=== PATIENT | male | born 1990 | race Caucasian/White ===

== ENCOUNTER 2020-02-29 13:58 | Emergency (ER) | payer BC ==
[2020-02-29] MEDS ORDERED: Sodium Chloride 0.9% 10 ML Syringe FLUSH PRN (14:25)
[2020-02-29] MEDS ORDERED: Sodium Chloride 0.9% 1,000 ML IV SCH ×2 (14:30→16:15)
--- NOTE | 2020-02-29 14:42 | EDM.PDOC ---
ED HPI GENERAL MEDICAL PROBLEM - General Chief Complaint: General Stated Complaint: SWEATING/SOB/POSS HEAT EXHAUSTION Time Seen by Provider: 02/29/20 14:10 Source of Information: Reports: Patient History Limitations: Reports: No Limitations - History of Present Illness INITIAL COMMENTS - FREE TEXT/NARRATIVE: Patient is a 29-year-old male who presents to the emergency department plaints of 2 episodes of dizziness, sweating, shortness of breath, slurred speech, and confusion. The first episode occurred approximately 10 days ago. Patient works on an [employer]. States that that time the temperature was about 100 degrees outside. He was working up on the [employer] and became nauseous. He was also short of breath, sweating, hot, confused, and slurred his speech. He also has significant muscle cramping at this time. His coworkers took him home where he rested. He had resolution of symptoms overnight but returned back to work the next day. Yesterday he had a similar episode, however he was not nauseous. It was not nearly as warm up on the [employer] yesterday as it was 10 days ago. He states he was once again up in the [employer] became sweaty, short of breath, dizzy, confused, and had slurred speech. He also had some mild muscle cramps. He denies any chest pain, numbness or tingling of the extremities, vomiting, or diarrhea. He states that he feels he drinks enough fluid. He drinks Gatorade, water, and body armor's about 8-14 bottles per day. He states he has felt overall fatigued since the initial episode 10 days ago. Denies any recreational drug use. He has no chronic medical conditions and is never had any surgeries. - Related Data Allergies Allergy/AdvReac Type Severity Reaction Status Date / Time No Known Allergies Allergy Verified 02/29/20 14:12 Home Meds: Home Meds . [No Known Home Meds] 02/29/20 [History] Past Medical History - Past Health History Medical/Surgical History: Denies Medical/Surgical History - Infectious Disease History Infectious Disease History: Reports: None Social & Family History - Tobacco Use Smoking Status *Q: Current Every Day Smoker Years of Tobacco use: 10 Packs/Tins Daily: 1.5 - Caffeine Use Caffeine Use: Reports: Energy Drinks - Recreational Drug Use Recreational Drug Use: No ED ROS GENERAL - Review of Systems Review Of Systems: See Below Constitutional: Reports: Fatigue. Denies: Fever, Chills HEENT: Reports: No Symptoms Respiratory: Reports: Shortness of Breath. Denies: Wheezing, Pleuritic Chest Pain, Cough Cardiovascular: Reports: Lightheadedness. Denies: Chest Pain, Syncope Endocrine: Reports: No Symptoms GI/Abdominal: Reports: No Symptoms. Denies: Abdominal Pain, Nausea, Vomiting : Reports: No Symptoms Musculoskeletal: Reports: Other (Generalized muscle cramps) Skin: Reports: No Symptoms Neurological: Reports: Confusion, Change in Speech. Denies: Headache, Numbness, Tingling Psychiatric: Reports: No Symptoms Hematologic/Lymphatic: Reports: No Symptoms Immunologic: Reports: No Symptoms ED EXAM, GENERAL - Physical Exam Exam: See Below Exam Limited By: No Limitations General Appearance: Alert, WD/WN, No Apparent Distress, Other (Sleepy) Respiratory/Chest: No Respiratory Distress, Lungs Clear, Normal Breath Sounds, No Accessory Muscle Use, Chest Non-Tender Cardiovascular: Normal Peripheral Pulses, Regular Rate, Rhythm, No Edema, No Gallop, No JVD, No Murmur, No Rub Neurological: Alert, Oriented, CN II-XII Intact, Normal Cognition, Normal Gait, Normal Reflexes, No Motor/Sensory Deficits. No: Confused Psychiatric: Normal Affect, Normal Mood Skin Exam: Warm, Dry, Intact, Normal Color, No Rash EKG INTERPRETATION EKG Date: 02/29/20 Time: 15:52 Rhythm: NSR Rate (Beats/Min): 66 [place]: Normal P-Wave: Present QRS: Normal ST-T: Normal QT: Normal EKG Interpretation Comments: t-wave inversion in lead III EKG interpreted by Dr. Mike Partida MD. Course - Vital Signs Last Recorded V/S: Last Vital Signs Temp 96.5 F L 02/29/20 14:08 Pulse 75 02/29/20 14:08 Resp 16 02/29/20 14:08 BP 123/84 02/29/20 14:08 Pulse Ox 96 02/29/20 14:08 - Orders/Labs/Meds Orders: Active Orders 24 hr Category Date Time Status Cardiac Monitoring [RC] . DIRECTED Care 02/29/20 15:53 Active EKG Documentation Completion [RC] STAT Care 02/29/20 15:36 Active Peripheral IV Care [RC] . DIRECTED Care 02/29/20 14:26 Active AMPHET/METH EXT CONF (GCMS) Routine Lab 02/29/20 16:30 Received Peripheral IV Insertion Adult [OM.PC] Stat Oth 02/29/20 14:25 Ordered Labs: Laboratory Tests 02/29/20 02/29/20 02/29/20 Range/Units 14:55 14:55 14:55 WBC 6.86 (4.23-9.07) K/mm3 RBC 5.07 (4.63-6.08) M/mm3 Hgb 15.0 (13.7-17.5) gm/dl Hct 45.7 (40.1-51.0) % MCV 90.1 (79.0-92.2) fl MCH 29.6 (25.7-32.2) pg MCHC 32.8 (32.2-35.5) g/dl RDW Std Deviation 42.2 (35.1-43.9) fL Plt Count 265 (163-337) K/mm3 MPV 11.0 (9.4-12.3) fl Neut % (Auto) 71.5 H (34.0-67.9) % Lymph % (Auto) 15.9 L (21.8-53.1) % [place] % (Auto) 8.5 (5.3-12.2) % Eos % (Auto) 3.8 (0.8-7.0) Baso % (Auto) 0.3 (0.1-1.2) % Neut # (Auto) 4.91 (1.78-5.38) K/mm3 Lymph # (Auto) 1.09 L (1.32-3.57) K/mm3 [place] # (Auto) 0.58 (0.30-0.82) K/mm3 Eos # (Auto) 0.26 (0.04-0.54) K/mm3 Baso # (Auto) 0.02 (0.01-0.08) K/mm3 D-Dimer, Quantitative < 0.19 L (0.19-0.50) mg/L Sodium 143 (136-145) mEq/L Potassium 4.0 (3.5-5.1) mEq/L Chloride 105 (98-107) mEq/L Carbon Dioxide 27 (21-32) mEq/L Anion Gap 15.0 (5-15) BUN 21 H (7-18) mg/dL Creatinine 1.0 (0.7-1.3) mg/dL Est Cr Clr Drug Dosing 120.71 mL/min Estimated GFR (MDRD) > 60 (>60) mL/min BUN/Creatinine Ratio 21.0 H (14-18) Glucose 98 (74-106) mg/dL Calcium 9.4 (8.5-10.1) mg/dL Total Bilirubin 0.6 (0.2-1.0) mg/dL AST 26 (15-37) U/L ALT 46 (16-63) U/L Alkaline Phosphatase 93 (46-116) U/L Creatine Kinase 212 (39-308) U/L Troponin I 0.060 H* (0.00-0.056) ng/mL C-Reactive Protein 0.3 (<1.0) mg/dL Total Protein 7.2 (6.4-8.2) g/dl Albumin 3.8 (3.4-5.0) g/dl Globulin 3.4 gm/dL Albumin/Globulin Ratio 1.1 (1-2) Urine Color (Yellow) Urine Appearance (Clear) Urine pH (5.0-8.0) Ur Specific [place] (1.005-1.030) Urine Protein (Negative) Urine Glucose (UA) (Negative) Urine Ketones (Negative) Urine Occult Blood (Negative) Urine Nitrite (Negative) Urine Bilirubin (Negative) Urine Urobilinogen (0.2-1.0) Ur Leukocyte Esterase (Negative) Urine RBC (0-5) /hpf Urine WBC (0-5) /hpf Ur Squamous Epith Cells (0-5) /hpf Urine Bacteria (FEW) /hpf Urine Mucus (FEW) /hpf Urine Opiates Screen (KVANQC=523) Ur Buprenorphine Scrn (CUTOFF=10) Ur Oxycodone Screen (IZC0CB=346) Urine Methadone Screen (TIG2JM=436) Ur Propoxyphene Screen (GDEMOF=647) Ur Barbiturates Screen (CKSTWJ=364) Ur Tricyclics Screen (KOSYII=375) Ur Phencyclidine Scrn (CUTOFF=25) Ur Amphetamine Screen (OPGTLF=358) U Methamphetamines Scrn (OIPVLY=666) U Benzodiazepines Scrn (JJIIMR=136) U Cocaine Metab Screen (HMGGAY=084) U Marijuana (THC) Screen (CUTOFF=50) 02/29/20 02/29/20 02/29/20 Range/Units 16:30 16:30 18:00 WBC (4.23-9.07) K/mm3 RBC (4.63-6.08) M/mm3 Hgb (13.7-17.5) gm/dl Hct (40.1-51.0) % MCV (79.0-92.2) fl MCH (25.7-32.2) pg MCHC (32.2-35.5) g/dl RDW Std Deviation (35.1-43.9) fL Plt Count (163-337) K/mm3 MPV (9.4-12.3) fl Neut % (Auto) (34.0-67.9) % Lymph % (Auto) (21.8-53.1) % [place] % (Auto) (5.3-12.2) % Eos % (Auto) (0.8-7.0) Baso % (Auto) (0.1-1.2) % Neut # (Auto) (1.78-5.38) K/mm3 Lymph # (Auto) (1.32-3.57) K/mm3 [place] # (Auto) (0.30-0.82) K/mm3 Eos # (Auto) (0.04-0.54) K/mm3 Baso # (Auto) (0.01-0.08) K/mm3 D-Dimer, Quantitative (0.19-0.50) mg/L Sodium (136-145) mEq/L Potassium (3.5-5.1) mEq/L Chloride (98-107) mEq/L Carbon Dioxide (21-32) mEq/L Anion Gap (5-15) BUN (7-18) mg/dL Creatinine (0.7-1.3) mg/dL Est Cr Clr Drug Dosing mL/min Estimated GFR (MDRD) (>60) mL/min BUN/Creatinine Ratio (14-18) Glucose (74-106) mg/dL Calcium (8.5-10.1) mg/dL Total Bilirubin (0.2-1.0) mg/dL AST (15-37) U/L ALT (16-63) U/L Alkaline Phosphatase (46-116) U/L Creatine Kinase (39-308) U/L Troponin I 0.060 H* (0.00-0.056) ng/mL C-Reactive Protein (<1.0) mg/dL Total Protein (6.4-8.2) g/dl Albumin (3.4-5.0) g/dl Globulin gm/dL Albumin/Globulin Ratio (1-2) Urine Color Yellow (Yellow) Urine Appearance Clear (Clear) Urine pH 7.0 (5.0-8.0) Ur Specific [place] 1.025 (1.005-1.030) Urine Protein Trace H (Negative) Urine Glucose (UA) Negative (Negative) Urine Ketones Negative (Negative) Urine Occult Blood Negative (Negative) Urine Nitrite Negative (Negative) Urine Bilirubin Negative (Negative) Urine Urobilinogen 1.0 (0.2-1.0) Ur Leukocyte Esterase Negative (Negative) Urine RBC 0-5 (0-5) /hpf Urine WBC 0-5 (0-5) /hpf Ur Squamous Epith Cells 0-5 (0-5) /hpf Urine Bacteria Few (FEW) /hpf Urine Mucus Moderate H (FEW) /hpf Urine Opiates Screen Negative (BIEGXB=024) Ur Buprenorphine Scrn Negative (CUTOFF=10) Ur Oxycodone Screen Negative (NOS3JM=373) Urine Methadone Screen Negative (NYT7AN=366) Ur Propoxyphene Screen Negative (YWURBC=860) Ur Barbiturates Screen Negative (HBUCTK=726) Ur Tricyclics Screen Negative (DLNGEO=242) Ur Phencyclidine Scrn Negative (CUTOFF=25) Ur Amphetamine Screen Presumptive positive H (FNRZEH=205) U Methamphetamines Scrn Presumptive positive H (GISYWE=230) U Benzodiazepines Scrn Negative (LIKBIF=004) U Cocaine Metab Screen Negative (KMKVJD=329) U Marijuana (THC) Screen Negative (CUTOFF=50) Meds: Medications Discontinued Medications Generic Name Dose Route Start Last Admin Trade Name Freq PRN Reason Stop Dose Admin Aspirin 324 mg 02/29/20 15:56 02/29/20 16:39 Aspirin PO 02/29/20 15:57 324 mg ONETIME ONE Administration Sodium Chloride 1,000 mls @ 999 mls/hr 02/29/20 14:30 02/29/20 15:03 Normal Saline IV 999 mls/hr ASDIRECTED BANDAR Administration Sodium Chloride 1,000 mls @ 999 mls/hr 02/29/20 16:15 02/29/20 16:40 Normal Saline IV 999 mls/hr ASDIRECTED BANDAR Infusion Sodium Chloride 10 ml 02/29/20 14:25 02/29/20 14:55 Saline Flush FLUSH 10 ml ASDIRECTED PRN Administration Keep Vein Open - Re-Assessments/Exams Free Text/Narrative Re-Assessment/Exam: 02/29/20 1555 Patient's hematology was overall unremarkable, however his troponin was slightly elevated at 0.060, above the cutoff for normal at 0.056. His head CT was normal. EKG showed t-wave inversion in lead III, but was otherwise normal. Patient has had no chest pain throughout his symptoms 10 days ago and last night. He has not voided thus far, therefore I will give him a second liter of IV fluids. I have also ordered aspirin 324 mg chewable. I have also ordered an EKG and a two-view chest x-ray. Plan will be to repeat troponin in 3 hours. 02/29/20 1630 Although patient denied any recreational drug use, his urine drug screen did come back positive for amphetamines and methamphetamines. Patient's father was in the room with him, however he did give permission for me to speak in front of him. Discussed these findings with the patient and he denies using methamphetamine. 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 I explained to him that this information is important as this could contribute to his elevated troponin. He states he does not know how it could have gotten in his system. 02/29/20 19:04 Repeat troponin stayed the same at 0.060. Called burglar alarm inspector on-call at [facility] in [place], Dr. Reynolds. Discussed patient's case with him. He verbalizes that the elevation of troponin could either be related to heat or the fact that he has methamphetamine in his system. He states since it did not go up over the course of the 3 hours indicates that he does not have an obstructive coronary syndrome and does not need to be further monitored at this time. Results discussed with patient. Advised that he should refrain from methamphetamine use, although he continues to deny that he use it. Also discussed that he should avoid alcohol and energy drinks as this will further dehydrate him. He is off from work for the next week, therefore he has time to rest and recuperate. He should return to the ER for any worsening symptoms. Departure - Departure Time of Disposition: 19:07 Disposition: Home, Self-Care 01 Condition: Good Clinical Impression: Heat exhaustion - Discharge Information *PRESCRIPTION DRUG MONITORING PROGRAM REVIEWED*: No *COPY OF PRESCRIPTION DRUG MONITORING REPORT IN PATIENT [facility]: No Instructions: Heat Illness-SportsMed Referrals: Erlinda Grubbs NP [Nurse Practitioner] - Forms: ED Department Discharge Additional Instructions: You were seen in the emergency department for 2 episodes of confusion, shortness of breath, slurred speech, sweating, and dizziness. Your work-up included blood work, CT scan of your head, chest x-ray, and an EKG of your heart. While in the ER you received 2 L of IV fluids as well as chewable aspirin. As we discussed, your troponin which is a cardiac enzyme was found to be very slightly elevated. A recheck of the value 3 hours later showed it did not go up but that it stayed the same. Urine drug screen did also, positive for amphetamines and methamphetamines however, you denied using these drugs. I did call and speak with the burglar alarm inspector at [facility] in [place]. Since your troponin did not increase after three hours, this indicates that you are not having an obstructive coronary syndrome (heart attack). This cardiac marker could be elevated either due to the stress nicole on by th heat exhaustion or the methamphetamine that is in your system. I recommend that you take the next week to rest and recuperate. Ensure that you are taking an adequate amount of fluid. Abstain from using methamphetamine or being around anybody who is using methamphetamine. Also recommend that you abstain from drinking alcohol or energy drinks as this will further dehydrate you. I would like you to follow-up in the clinic with a primary care provider later this week for recheck to ensure that you are doing well. Referral has been sent to Erlinda Grubbs NP. The number to schedule with her as listed below. If you should experience any new or worsening symptoms of concern, please not hesitate to return to the emergency department Sepsis Event Note (ED) - Evaluation Sepsis Screening Result: No Definite Risk - My Orders Last 24 Hours: My Active Orders 02/29/20 14:25 Peripheral IV Insertion Adult [OM.PC] Stat 02/29/20 14:26 Peripheral IV Care [RC] . DIRECTED 02/29/20 15:36 EKG Documentation Completion [RC] STAT 02/29/20 15:53 Cardiac Monitoring [RC] . DIRECTED 02/29/20 16:30 AMPHET/METH EXT CONF (GCMS) Routine - Assessment/Plan Last 24 Hours: My Active Orders 02/29/20 14:25 Peripheral IV Insertion Adult [OM.PC] Stat 02/29/20 14:26 Peripheral IV Care [RC] . DIRECTED 02/29/20 15:36 EKG Documentation Completion [RC] STAT 02/29/20 15:53 Cardiac Monitoring [RC] . DIRECTED 02/29/20 16:30 AMPHET/METH EXT CONF (GCMS) Routine
--- NOTE | 2020-02-29 15:03 | CT ---
Head CT Technique: Multiple axial sections through the brain were obtained. Intravenous contrast was not utilized. Comparison: No prior intracranial imaging is available. Findings: Ventricles along with basal cisterns and sulci over the convexities are within normal limits for the patient's age. No abnormal parenchymal densities are seen. No evidence of intracranial hemorrhage. No midline shift or mass-effect is seen. Bone window settings were reviewed. Visualized mastoid sinuses are clear. Mucosal thickening is seen within the ethmoid sinuses. No acute calvarial finding is seen. Impression: 1. Mucosal thickening within the ethmoid sinuses. Uncertain if this is acute or chronic. 2. No acute intracranial abnormality is appreciated. Diagnostic code #3 This report was dictated in MDT
[2020-02-29] MEDS ORDERED: Aspirin 81 MG Tab.Chew PO ONE (15:56)
--- NOTE | 2020-02-29 16:51 | CR ---
Chest: PA and lateral views of the chest were obtained. Comparison: No previous chest x-ray. Heart size and mediastinum are normal. Lungs are clear with no acute parenchymal change. Bony structures are unremarkable. Impression: 1. Nothing acute is appreciated on 2 view chest x-ray. Diagnostic code #1 This report was dictated in MDT
== END 2020-02-29 19:25 | disposition home or self-care (01) ==
LOC: JD.ED 13:58
DX: T67.5XXA Heat exhaustion, unspecified, initial encounter (principal); R42 Dizziness and giddiness; F17.210 Nicotine dependence, cigarettes, uncomplicated
CPT/HCPCS: 36415; 70450; 71046; 80053; 80306; 80324; 80359; 81001; 82550; 84484; 85025; 85379; 86140; 93005; 96360; 96361; 99285; A9270; J7030; 93010; 99283; G0480

== ENCOUNTER 2020-11-17 22:02 | Emergency (ER) | payer SELFPAY ==
--- NOTE | 2020-11-17 22:36 | EDM.PDOC ---
ED HPI GENERAL MEDICAL PROBLEM - General Chief Complaint: Upper Extremity Injury/Pain Stated Complaint: INJURED PINKY FINGER ON LEFT HAND Time Seen by Provider: 11/17/20 22:11 Source of Information: Reports: Patient History Limitations: Reports: No Limitations - History of Present Illness INITIAL COMMENTS - FREE TEXT/NARRATIVE: The patient presents with left little finger pain. This started a couple days ago. An object weighing over 200pounds crushed his left little finger. He denies any other injury. He is right handed. Onset: Sudden Duration: Day(s): (2) Location: Reports: Upper Extremity, Left (little finger) Quality: Reports: Sharp Severity: Moderate Improves with: Reports: Immobilization Worsens with: Reports: Movement Context: Reports: Trauma (crushed by heavy object) Associated Symptoms: Reports: No Other Symptoms Left Finger-Little Pain Score (Numeric/FACES): 4 - Related Data Allergies Allergy/AdvReac Type Severity Reaction Status Date / Time No Known Allergies Allergy Verified 11/17/20 22:10 Home Meds: Home Meds . [No Known Home Meds] 02/29/20 [History] Past Medical History - Past Health History Medical/Surgical History: Denies Medical/Surgical History - Infectious Disease History Infectious Disease History: Reports: None Social & Family History - Tobacco Use Tobacco Use Status *Q: Current Every Day Tobacco User Years of Tobacco use: 12 Packs/Tins Daily: 0.5 - Caffeine Use Caffeine Use: Reports: Coffee, Energy Drinks, Soda, Tea - Recreational Drug Use Recreational Drug Use: No Review of Systems - Review of Systems Review Of Systems: See Below Constitutional: Reports: No Symptoms Eyes: Reports: No Symptoms Ears: Reports: No Symptoms Nose: Reports: No Symptoms Mouth/Throat: Reports: No Symptoms Respiratory: Reports: No Symptoms Cardiovascular: Reports: No Symptoms GI/Abdominal: Reports: No Symptoms Genitourinary: Reports: No Symptoms Musculoskeletal: Reports: Other (Left littel finger pain) ED EXAM, GENERAL - Physical Exam Exam: See Below Exam Limited By: No Limitations General Appearance: Alert, No Apparent Distress Ears: Normal External Exam Nose: Normal Inspection Head: Atraumatic, Normocephalic Neck: Normal Inspection Respiratory/Chest: No Respiratory Distress Extremities: Other (Pain upon palpation and swelling to the left little finger at the distal end. Slight decreased sensation.) Course - Vital Signs Last Recorded V/S: Last Vital Signs Temp 97.2 F 11/17/20 22:08 Pulse 90 11/17/20 22:08 Resp 18 11/17/20 22:08 BP 136/74 11/17/20 22:08 Pulse Ox 98 11/17/20 22:08 - Orders/Labs/Meds Orders: Active Orders 24 hr Category Date Time Status Fingers Fifth Digit Lt F4 [CR] Stat Exams 11/17/20 22:15 Ordered - Re-Assessments/Exams Free Text/Narrative Re-Assessment/Exam: 11/17/20 22:34 I ordered an x-ray and there is a fracture of the distal phalynx of the 5th finger. I will get him in an aluminum free formed splint and have him follow up with Dr Jasso. Departure - Departure Time of Disposition: 22:45 Disposition: Home, Self-Care 01 Condition: Good Clinical Impression: Fracture of phalanx of little finger Qualifiers: Encounter type: initial encounter Fracture type: closed Phalanx: distal Fracture alignment: nondisplaced Laterality: left Qualified Code(s): S62.667A - Nondisplaced fracture of distal phalanx of left little finger, initial encounter for closed fracture - Discharge Information *PRESCRIPTION DRUG MONITORING PROGRAM REVIEWED*: Not Applicable *COPY OF PRESCRIPTION DRUG MONITORING REPORT IN PATIENT [facility]: Not Applicable Referrals: PCP,None [Primary Care Provider] - Miguel Jasso MD [Physician] - 1 Week Forms: ED Department Discharge, ED Return to Work/School Form Additional Instructions: Ice your finger for 15 minutes 3 times per day for 2 days. Wear the splint. 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 Take tylenol or motrin for nunez. Please return if you are worse. Sepsis Event Note (ED) - Evaluation Sepsis Screening Result: No Definite Risk - Focused Exam Vital Signs: Vital Signs Temp Pulse Resp BP Pulse Ox 11/17/20 22:08 97.2 F 90 18 136/74 98 - My Orders Last 24 Hours: My Active Orders 11/17/20 22:15 Fingers Fifth Digit Lt F4 [CR] Stat - Assessment/Plan Last 24 Hours: My Active Orders 11/17/20 22:15 Fingers Fifth Digit Lt F4 [CR] Stat
--- NOTE | 2020-11-18 09:07 | CR ---
Left fifth finger: 3 views centered to the left fifth finger were obtained. Comparison: No prior hand study is available. Fracture is identified within the distal phalanx of the left fifth finger with minimal displacement. Soft tissue swelling is also noted. No proximal bony abnormality is appreciated. Impression: 1. Slightly displaced fracture within the distal phalanx of the left fifth finger with soft tissue swelling. Diagnostic code #3
== END 2020-11-17 22:56 | disposition home or self-care (01) ==
LOC: JD.ED 22:02
DX: S62.667A Nondisplaced fracture of distal phalanx of left little finger, initial encounter for closed fracture (principal); Z72.0 Tobacco use; X50.0XXA Overexertion from strenuous movement or load, initial encounter
CPT/HCPCS: 73140-26-F4; 73140-F4; 99283

== ENCOUNTER 2020-12-01 19:07 | Emergency (ER) | payer SELFPAY ==
[2020-12-01] MEDS ORDERED: HYDROmorphone 1 MG/ML Syringe IM ONE (19:31)
[2020-12-01] MEDS ORDERED: Lidocaine 1% 10 ML MDV INJECT ONE (19:36)
--- NOTE | 2020-12-01 19:44 | EDM.PDOC ---
ED HPI GENERAL MEDICAL PROBLEM - General Chief Complaint: Upper Extremity Injury/Pain Stated Complaint: hand injury Time Seen by Provider: 12/01/20 19:20 Source of Information: Reports: Patient, RN Notes Reviewed History Limitations: Reports: No Limitations - History of Present Illness INITIAL COMMENTS - FREE TEXT/NARRATIVE: Patient is a 30-year-old male who presents to the ER for a left hand injury. Patient was out shooting targets with a friend, he when he tried to climb up a rather vertical embankment, ended up slipping and then slapped his left hand down on a sharp rock. He notes since this incident, he has not been able to move his left thumb much at all, along with his left index finger. There are some open wounds and things are bleeding but it seems to be under control when he gets to the ER. He is denying any numbness or tingling distal to the injury. He does note that he has a broken pinky finger on the same affected hand. Patient notes he is right-hand dominant however. He did not take anything for pain management prior to coming to the ER. Patient denies any other sick-like symptoms, fever/chills, cough/shortness of breath, nausea/vomiting/diarrhea. Left Hand Pain Score (Numeric/FACES): 9 - Related Data Allergies Allergy/AdvReac Type Severity Reaction Status Date / Time No Known Allergies Allergy Verified 12/01/20 19:22 Home Meds: Home Meds . [No Known Home Meds] 02/29/20 [History] Past Medical History - Past Health History Medical/Surgical History: Denies Medical/Surgical History - Infectious Disease History Infectious Disease History: Reports: None Social & Family History - Tobacco Use Tobacco Use Status *Q: Current Every Day Tobacco User Years of Tobacco use: 8 Packs/Tins Daily: 0.5 - Caffeine Use Caffeine Use: Reports: Energy Drinks, Soda - Recreational Drug Use Recreational Drug Use: No Review of Systems - Review of Systems Review Of Systems: Comprehensive ROS is negative, except as noted in HPI. ED EXAM, GENERAL - Physical Exam Exam: See Below Exam Limited By: No Limitations General Appearance: Alert, WD/WN, No Apparent Distress Respiratory/Chest: No Respiratory Distress, Lungs Clear, Normal Breath Sounds, No Accessory Muscle Use, Chest Non-Tender Cardiovascular: Normal Peripheral Pulses, Regular Rate, Rhythm, No Edema Peripheral Pulses: 2+: Radial (L), Radial (R) Extremities: Normal Range of Motion (pt states is painful to move fingers, but has good strength; no tendon injury readily apparent.), Normal Capillary Refill Neurological: Alert, Oriented, Normal Cognition, No Motor/Sensory Deficits Psychiatric: Normal Affect, Normal Mood Skin Exam: Warm, Dry, Normal Color, No Rash, Wound/Incision (Open wounds of the patient's anterior left index finger, seems to be between the PIP and the DIP joint. Bleeding is under control.) ED TRAUMA EXTREMITY PROCEDURES - Laceration/Wound Repair Left Anterior Digit - 2nd (Index) Lac/Wound Length In cm: 2 Appearance: Subcutaneous, Linear Distal NVT: Neuro & Vascular Intact, No Tendon Injury Anesthetic Type: Local Local Anesthesia - Lidocaine (Xylocaine): 1% Plain Local Anesthetic Volume: 3cc Skin Prep: Chlorhexidine (Hibiciens), Saline Exploration/Debridement/Repair: Wound Explored, In a Bloodless Field, Explored to Base, No Foreign Material Found Closed With: Sutures Suture Size: 4-0 # of Sutures: 2 Suture Type: Prolene, Interrupted, Simple Sterile Dressing Applied: Nurse Tetanus Status Addressed: Yes Complications: No Course - Vital Signs Last Recorded V/S: Last Vital Signs Temp 97.6 F 12/01/20 19:18 Pulse 113 H 12/01/20 19:18 Resp 18 12/01/20 19:18 BP 162/98 H 12/01/20 19:18 Pulse Ox 99 12/01/20 19:18 - Orders/Labs/Meds Meds: Medications Discontinued Medications Generic Name Dose Route Start Last Admin Trade Name Clay PRN Reason Stop Dose Admin Hydromorphone HCl 1 mg 12/01/20 19:31 12/01/20 19:43 Hydromorphone 1 Mg/Ml Syringe IM 12/01/20 19:32 1 mg ONETIME ONE Administration Lidocaine HCl 10 ml 12/01/20 19:36 Lidocaine 1% 10 Ml Mdv INJECT 12/01/20 19:37 ONETIME ONE Departure - Departure Time of Disposition: 20:31 Disposition: Home, Self-Care 01 Condition: Good Clinical Impression: Finger laceration Qualifiers: Encounter type: initial encounter Finger: index finger Damage to nail status: without damage Foreign body presence: without foreign body Laterality: left Qualified Code(s): S61.211A - Laceration without foreign body of left index finger without damage to nail, initial encounter - Discharge Information *PRESCRIPTION DRUG MONITORING PROGRAM REVIEWED*: No *COPY OF PRESCRIPTION DRUG MONITORING REPORT IN PATIENT [facility]: No Instructions: Laceration Care, Adult, [id number] Forms: ED Department Discharge Additional Instructions: You have been evaluated in the ED for your laceration. Sutures will need to stay in for 10-14 days. You may return to the ED or any clinic for removal. X-rays of the hand demonstrate no acute fractures or other bony abnormalities, you do have a healing left pinky fracture. Please keep this area clean and dry, you may cleanse with regular soap and water. No vigorous scrubbing. Please try to avoid submerging the affected area in water for prolonged periods of time until the sutures are removed. Watch out for signs of infection like increased redness, swelling, pain at the laceration site, or if you should develop any fevers or chills. Please return to ED if your symptoms change or worsen. Sepsis Event Note (ED) - Evaluation Sepsis Screening Result: No Definite Risk - Focused Exam Vital Signs: Vital Signs Temp Pulse Resp BP Pulse Ox 12/01/20 19:18 97.6 F 113 H 18 162/98 H 99
--- NOTE | 2020-12-01 20:21 | CR ---
Left hand: 4 views of the left hand were obtained. Comparison: Prior left fifth finger study of 11/17/20. Fracture is again noted within the distal phalanx of the fifth digit. This is stable from prior exam. No additional fracture or other bony abnormality is appreciated. Impression: 1. Stable fifth finger fracture. 2. No other acute osseous abnormality is appreciated. Diagnostic code #3
== END 2020-12-01 20:42 | disposition home or self-care (01) ==
LOC: JD.ED 19:07
DX: S61.211A Laceration without foreign body of left index finger without damage to nail, initial encounter (principal); Z72.0 Tobacco use; W26.8XXA Contact with other sharp object(s), not elsewhere classified, initial encounter
CPT/HCPCS: 12001; 73130; 96372; 99283; J1170

== ENCOUNTER 2022-08-18 10:05 | Emergency (ER) | payer OTHER ==
[2022-08-18] MEDS ORDERED: HYDROmorphone 0.5 MG/0.5 ML Syringe IVPUSH ONE ×2 (10:10→11:49)
[2022-08-18] MEDS ORDERED: Sodium Chloride 0.9% 10 ML Syringe FLUSH PRN (10:13)
[2022-08-18] MEDS ORDERED: ceFAZolin 1 GM in Sodium Chloride 0.9% 50 ML IV ONE (10:15)
[2022-08-18] MEDS ORDERED: Acetaminophen 325 MG Tab PO ONE (11:50)
== END 2022-08-18 12:22 | disposition home or self-care (01) ==
LOC: JD.ED 10:05
DX: S61.432A Puncture wound without foreign body of left hand, initial encounter (principal); Z72.0 Tobacco use; X95.9XXA Assault by unspecified firearm discharge, initial encounter
CPT/HCPCS: 73130; 96365; 96375; 96376; 99285; A9270; J0690; J1170; J3490